=== PATIENT | female | born 1990 | race Caucasian/White ===

== ENCOUNTER → 2017-10-17 | Outpatient (CLI) | payer BC ==
--- NOTE | 2017-10-17 17:33 | KCIC ---
Early OB ultrasound History: . Evaluate dates Comparison: None. Technique: Transabdominal imaging was performed. Findings: Single live intrauterine is identified with gestational sac, yolk sac, and a fetus seen. Mean crown-rump length is 6.66 cm corresponding to 13 weeks 0 days. Estimated date of delivery is April 24, 2018. Gestational age estimation by last menstrual calculation is 14 weeks 5 days. heart rate is 168 bpm. Gestational sac appears regular. No subchorionic hemorrhage is identified. Neither ovary is visualized. Impression: 1. Single live intrauterine . Average ultrasound age is 13 weeks 0 days. Estimated date of delivery is April 24, 2018. Electronically signed by: Gary Pitts MD (10/17/2017 5:30 PM) [place] [id number]
== END | disposition home or self-care (01) ==
LOC: KCIC US 12:25
DX: Z34.81 Encounter for supervision of other normal pregnancy, first trimester (principal); Z3A.13 13 weeks gestation of pregnancy
CPT/HCPCS: 76801

== ENCOUNTER → 2017-12-22 | Outpatient (CLI) | payer BC ==
--- NOTE | 2017-12-24 08:54 | KCIC ---
OB ultrasound greater than 14 weeks 12/22/2017 Clinical History: Second trimester . survey. Technique: A real-time ultrasound examination of the gravid uterus was performed. Multiple images were obtained. Findings: Comparison study is dated 10/17/2017. There is a single living IUP. The fetus is in a breech position. cardiac and somatic activity is seen. The heart rate is 141 beats per minutes. The maternal cervix is closed. It measures 8.29 cm in length. The placenta is in anterior. No abnormality is seen. The amniotic fluid volume is within normal limits. The CHAN measures 13.1 cm. Neither maternal ovary is visualized. The following measurements were obtained: BPD 5.5cm 22 weeks 5 days HC 20.1 cm 22weeks to days AC 17.5 cm 22weeks 3 days FL 3.9 cm 22 weeks 3 days The estimated gestational age by ultrasound on today's study is 22 weeks 3 days plus or minus a standard deviation of 10 days. The estimated date of delivery by ultrasound is 04/24/2018. Since the previous examination there has been appropriate interval growth. No abnormality is seen. Specifically the stomach, bladder, kidneys, 3 vessel cord and cord insertion, four-chamber heart, cisterna magna, cerebellum, nose/mouth, spine and extremities are well-visualized and within normal limits. Impression: Single living IUP with an estimated gestational age by ultrasound of 22 weeks 3 days +/- a standard deviation of 10 days. Since the previous examination there has been appropriate interval growth. Electronically signed by: Dru Perkins MD (12/24/2017 8:51 AM) [id number]
== END | disposition home or self-care (01) ==
LOC: KCIC US 13:22
DX: O32.1XX0 Maternal care for breech presentation, not applicable or unspecified (principal); Z3A.22 22 weeks gestation of pregnancy
CPT/HCPCS: 76805